=== PATIENT | male | born 1960 | race Caucasian/White ===

== ENCOUNTER 2019-08-04 11:29 | Emergency (ER) | payer BC ==
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
[2019-08-04 12:09] LABS: Absolute Lymphocytes (CBC) 1.5 K/uL (0.7-4.9); Basophils % 0.5 % (0-1.3); Lymphocytes % 24.9 % (15.3-44.8); MPV 6.9 fL (7.6-11.3); RBC Red Blood Cell Count 4.31 M/uL (4.33-5.43)
[2019-08-04 12:16] LABS: BUN Blood Urea Nitrogen 6 mg/dL (7-18); Bicarbonate 26 mmol/L (21-32); Glucose Level 100 mg/dL (74-106); Potassium 3.4 mmol/L (3.5-5.1); Sodium Level 135 mmol/L (136-145)
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
[2019-08-04] MEDS ORDERED: TETANUS & DIPHTHERIA TOX,ADULT 0.5 ML VIAL ONE (13:43)
[2019-08-04 16:10] VITALS: O2SAT 99
[2019-08-04 16:11] VITALS: BP 140/74; TEMP 98
== END 2019-08-04 15:19 | disposition home or self-care (01) ==
LOC: ER 11:29
DX: S00.31XA Abrasion of nose, initial encounter (principal); S50.312A Abrasion of left elbow, initial encounter; S50.311A Abrasion of right elbow, initial encounter; F10.129 Alcohol abuse with intoxication, unspecified; V47.5XXA Car driver injured in collision with fixed or stationary object in traffic accident, initial encounter; Z23 Encounter for immunization
CPT/HCPCS: 36415; 70450; 72125; 80048; 80320; 85025; 86850; 86900; 86901; 90471; 90714; 99285